=== PATIENT | male | born 1995 | race Caucasian/White ===

== ENCOUNTER 2017-02-13 19:01 | Emergency (ER) | payer BC ==
[2017-02-13] MEDS ORDERED: diphenhydrAMINE HCL 50 MG CAPSULE PO ONE ×2 (20:31→20:36)
[2017-02-13] MEDS ORDERED: DEXAMETHASONE SOD PHOSPHATE 10 MG/ML VIAL IM ONE (20:31)
[2017-02-13] MEDS ORDERED: TRIAMCINOLONE ACETONIDE 40 MG/ML VIAL IM ONE (20:31)
[2017-02-13] MEDS ORDERED: DEXAMETHASONE SOD PHOSPHATE 10 MG/ML VIAL ONE (20:36)
[2017-02-13] MEDS ORDERED: TRIAMCINOLONE ACETONIDE 40 MG/ML VIAL ONE (20:36)
--- NOTE | 2017-02-13 20:39 | ERNOTE ---
Integumentary HPI - Narrative Date of Service: 02/13/17 - General Presenting Symptoms: rash Time Seen by Provider: 02/13/17 20:20 Source: patient, RN notes reviewed Exam Limitations: no limitations - Immun/Allergies/Home Medications Immunizations: IMMUNIZATION HX Immunizations Up to Date Yes History of Influenza Vaccine No Hx Pneumococcal Vaccination No Allergies/Adverse Reactions: Allergies Allergy/AdvReac Type Severity Reaction Status Date / Time No Known Allergies Allergy Verified 02/13/17 19:08 Home Medications: HOME MEDICATIONS NK [No Home Medication] 02/13/17 [Last Taken Unknown] - History of Present Illness Narrative: 21 y/o male ambulatory to the ED by private vehicle for a rash on his extremities that began 3 or 4 days ago. He believes it is poison polly, but does not recall being in contact with any. Location: Reports: upper extremity, lower extremity Quality: Reports: itching Severity: moderate Exposure: Reports: poison polly/oak Associated Symptoms: Reports: rash. Denies: blisters, hives, petechiae, swelling/mass/lumps, edema, fever, sore throat, malaise Prior Treatment: Denies: recently seen Review of Systems - Review of Systems Constitutional: Absent: recent illness, fever, chills, malaise EYE: Present: no symptoms reported ENT: Absent: nose congestion, sore throat, throat swelling Respiratory: Absent: shortness of breath, cough, wheezing, stridor Cardiology: Present: no symptoms reported Gastrointestinal/Abdominal: Absent: nausea, vomiting Genitourinary: Absent: dysuria, hematuria Musculoskeletal: Absent: muscle pain, joint pain, joint swelling Skin: Present: rash, lesions. Absent: lumps, change in color Neurological: Absent: headache, dizziness/light-headedness Endocrine: Present: no symptoms reported Hematologic/Lymphatic: Absent: easy bruising, easy bleeding Psych: Present: no symptoms reported - Patient's Past Medical History Patient History - Medical: No pertinent hx Patient History - Cardiac/Respiratory: No pertinent hx Patient History - Cancer: No Hx of Cancer Patient History - Surgical Procedures: Other Patient History - Other: None - Family History Mother Family History - Medical: No pertinent hx Family History - Cardiac/Respiratory: Hypertension Father Family History - Cardiac/Respiratory: No pertinent hx - Social History Living Situations: home Abuse History: No History of abuse Psych History: No pertinent hx Does anyone smoke in the home?: No Alcohol Use: none Drug Use: none - Immunizations Immunizations Up to Date: Yes Hx Pneumococcal Vaccination: No History of Influenza Vaccine: No Physical Exam - Physical Exam General Appearance: Present: wd/wn, alert, no apparent distress Head Exam: Present: normal inspection, no evidence of injury Ears, Nose, Throat: Present: normal ENT inspection Neck: Present: normal inspection, nontender, supple Respiratory: Present: no respiratory distress, normal breath sounds, no accessory muscle use, lungs clear Cardiovascular/Chest: Present: regular rate, rhythm, no murmur, normal peripheral pulses Extremity Exam: Present: normal except - - rash, non-tender, normal range of motion, no edema Neurological Exam: Present: alert, oriented, normal mood/affect, no motor/ sensory deficits Skin Exam: Present: normal color, warm/dry, skin rash - erythematous papular eruption on both medial thighs and volar surfaces of forearms ED Progress - Vital Signs Patient's Vital Signs:: I have reviewed the patient's vital signs. Vital Signs: Vital Signs 02/13/17 02/13/17 02/13/17 19:06 20:02 20:26 Temperature 37.2 C Pulse Rate 67 66 64 Respiratory 17 Rate Blood Pressure 143/78 125/77 138/76 O2 Sat by Pulse 99 100 99 Oximetry - Progress/Reassessment Chief Complaint: Rash Progress:: Unchanged Plan - Plan Plan: Decadron and Kenalog given IM, has Kenalog cream at home Departure Clinical Impression: Poison polly dermatitis - Departure Disposition: Home self-care Condition: Good Instructions: Poison Polly Dermatitis Additional Instructions: Use triamcinolone (Kenalog) cream on rash - apply thin coat 3 times a day for 5 to 7 days Benadryl may help you sleep
[2017-02-13 20:49] VITALS: BP 136/80
== END 2017-02-13 20:59 | disposition home or self-care (01) ==
LOC: ER 19:01
DX: L23.7 Allergic contact dermatitis due to plants, except food (principal)

== ENCOUNTER 2017-02-26 22:21 | Emergency (ER) | payer BC ==
--- NOTE | 2017-02-26 22:58 | ERNOTE ---
Integumentary HPI - General Presenting Symptoms: rash Time Seen by Provider: 02/26/17 22:47 Source: patient Exam Limitations: no limitations - Immun/Allergies/Home Medications Immunizations: IMMUNIZATION HX Immunizations Up to Date Yes History of Influenza Vaccine No Hx Pneumococcal Vaccination No Allergies/Adverse Reactions: Allergies Allergy/AdvReac Type Severity Reaction Status Date / Time No Known Allergies Allergy Verified 02/26/17 22:37 Home Medications: HOME MEDICATIONS Permethrin [Elimite 5% Cream] 1 appl TP ONCE #1 tube 02/26/17 [Last Taken Unknown] - History of Present Illness Narrative: Has had rash for two weeks and was seen in this ED 1 week ago and given a steroid injection. This helped for 2-3 days. He continues to have symptoms and the papulse are moving up his arms to his axilla and continue on his legs. Location: Reports: upper extremity, lower extremity Quality: Reports: itching Severity: moderate Exposure: Reports: no cause identified Modifying Factors - (Improves): Reports: other - IM steroids given last ED visit Prior Treatment: Reports: recently seen, treated by physician Review of Systems - Review of Systems Constitutional: Absent: recent illness EYE: Present: no symptoms reported ENT: Absent: nose congestion, nasal drainage Respiratory: Absent: cough Cardiology: Present: no symptoms reported Gastrointestinal/Abdominal: Present: no symptoms reported Genitourinary: Present: no symptoms reported Musculoskeletal: Present: no symptoms reported Skin: Present: See HPI Neurological: Present: no symptoms reported Endocrine: Present: no symptoms reported Hematologic/Lymphatic: Present: no symptoms reported Psych: Present: no symptoms reported - Patient's Past Medical History Patient History - Medical: No pertinent hx Patient History - Cardiac/Respiratory: No pertinent hx Patient History - Cancer: No Hx of Cancer Patient History - Surgical Procedures: Other Patient History - Other: None - Family History Mother Family History - Medical: No pertinent hx Family History - Cardiac/Respiratory: Hypertension Father Family History - Cardiac/Respiratory: No pertinent hx - Social History Living Situations: home Abuse History: No History of abuse Psych History: No pertinent hx Does anyone smoke in the home?: No Patient requests Smoking Cessation Consult: No Initiate information on Smoking Cessation: No Alcohol Use: none Drug Use: none - Immunizations Immunizations Up to Date: Yes Hx Pneumococcal Vaccination: No History of Influenza Vaccine: No Physical Exam - Physical Exam General Appearance: Present: wd/wn, alert, no apparent distress Head Exam: Present: normal inspection, no evidence of injury Neck: Present: normal inspection, supple Respiratory: Present: no respiratory distress, no accessory muscle use Extremity Exam: Present: normal range of motion, no edema Neurological Exam: Present: alert, oriented, normal mood/affect Skin Exam: Present: other - small mildly erythematous papules on bilateral lower extremities from feet to mid thigh. No vesicles. bilateral upper extremities have groups of papules in the axilla and medial arms. ED Progress - Vital Signs Patient's Vital Signs:: I have reviewed the patient's vital signs. Vital Signs: Vital Signs 02/26/17 22:31 Temperature 36.6 C Pulse Rate 60 Respiratory 18 Rate Blood Pressure 144/72 O2 Sat by Pulse 100 Oximetry - Progress/Reassessment Chief Complaint: Rash Departure Clinical Impression: Scabies - Departure Disposition: Home self-care Condition: Good Instructions: Scabies, Adult Additional Instructions: Prescription was sent to [facility] pharmacy. Allow a week or two after application for the itching to subside. Prescriptions: Permethrin [Elimite 5% Cream] 1 appl TP ONCE #1 tube
[2017-02-26 23:19] VITALS: BP 128/78
== END 2017-02-26 23:18 | disposition home or self-care (01) ==
LOC: ER 22:21
DX: B86 Scabies (principal)